=== PATIENT | male | born 1970 | race Caucasian/White ===

== ENCOUNTER 2017-02-09 20:52 | Emergency (ER) | payer OTHER ==
[~2017-02-09] VITALS: Ht 172.7 cm; Wt 86.2 kg
[2017-02-09 23:49] VITALS: BP 142/89
== END 2017-02-09 23:52 | disposition home or self-care (01) ==
LOC: M ED 21:08
DX: Z71.89 Other specified counseling (principal); F10.10 Alcohol abuse, uncomplicated; Z60.9 Problem related to social environment, unspecified; I10 Essential (primary) hypertension